=== PATIENT | male | born 1980 | race African-American/Black ===

== ENCOUNTER 2024-01-28 16:01 | Emergency (ER) | payer MEDICAID, OTHER ==
[~2024-01-28] VITALS: Ht 188 cm; Wt 117.9 kg
[2024-01-28 16:04] VITALS: PULSE 97; RESP 18; O2SAT 99
[2024-01-28 16:10] VITALS: BP 157/88; TEMP 98; O2SAT 97
[2024-01-28] MEDS ORDERED: HYDR-4001 MT (17:32)
[2024-01-28] MEDS ORDERED: IBUP-2029 MT (17:32)
== END 2024-01-28 18:08 | disposition home or self-care (01) ==
LOC: ER 16:01
DX: S62.502A Fracture of unspecified phalanx of left thumb, initial encounter for closed fracture (principal); X58.XXXA Exposure to other specified factors, initial encounter; Y93.89 Activity, other specified; Y92.89 Other specified places as the place of occurrence of the external cause; Y99.8 Other external cause status
CPT/HCPCS: 29125; 73130; 99283